=== PATIENT | male | born 1930 | race Caucasian/White ===

== ENCOUNTER 2017-09-02 23:04 | Emergency (ER) | payer MEDICARE ==
--- NOTE | 2017-09-02 23:23 | EDM.PDOC ---
ED HPI GENERAL MEDICAL PROBLEM - General Chief Complaint: Respiratory Problem Stated Complaint: ER Time Seen by Provider: 09/02/17 23:05 Source of Information: Reports: Patient, EMS - History of Present Illness INITIAL COMMENTS - FREE TEXT/NARRATIVE: Patient is brought in the emergency department tonight by EMS from a sudden onset of shortness of breath and inability to get in any air. Patient states that this started approximately around 9 PM tonight when he was just watching TV. The shortness of breath came out of nowhere. He denies any chest pain dizziness lightheadedness nausea or vomiting. Denies becoming diaphoretic at all. He has had episodes like this in the past but it has pasted on its own. Does have a history of smoking and is currently a smoker. Physical history of an aortic aneurysm measuring 5 mm that is being followed by cardiothoracic surgery. 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 - Related Data Allergies Allergy/AdvReac Type Severity Reaction Status Date / Time No Known Allergies Allergy Verified 09/02/17 23:22 Home Meds: Home Meds Acetaminophen [Tylenol Extra Strength] 1,000 mg PO BID PRN 06/30/17 [History] Aspirin [Halfprin] 81 mg PO DAILY 06/30/17 [History] Betamethasone Dipropionate [Diprosone 0.05% Crm] 1 dose TOP BID 06/30/17 [ History] Doxepin [SINEquan] 10 mg PO BEDTIME 06/30/17 [History] Triamcinolone Acetonide [Triamcinolone Acetonide 0.1% Crm] 1 dose TOP BID [History] amLODIPine [Norvasc] 2.5 mg PO DAILY 06/30/17 [History] rOPINIRole HCl [Requip] 0.25 mg PO TID 06/30/17 [History] Past Medical History HEENT History: Reports: Macular Degeneration Cardiovascular History: Reports: Heart Murmur, High Cholesterol, Hypertension, Other (See Below) Other Cardiovascular History: irregular heart rhythm Genitourinary History: Reports: Other (See Below) Other Genitourinary History: elevated PSA Musculoskeletal History: Reports: Back Pain, Chronic Oncologic (Cancer) History: Reports: Basal Cell Carcinoma, Renal (Partial right nephrectomy 2005. Left renal mass with radiofrequency ablation.) - Past Surgical History HEENT Surgical History: Reports: Cataract Surgery Cardiovascular Surgical History: Reports: AAA Repair GI Surgical History: Reports: Appendectomy Male Surgical History: Reports: Other (See Below) Other Male Surgeries/Procedures: ablation left renal cysts Musculoskeletal Surgical History: Reports: Hip Replacement Other Musculoskeletal Surgeries/Procedures:: rods in both hips Social & Family History - Family History Other Respiratory Family Hisory: Unknown lung disease father Psychiatric: Reports: Depression (father) Oncologic: Reports: Breast (sister), Liver (Mother), Pancreatic (mother), Other (See Below) (Abdominal mother. Sister unidentified other cancer) - Tobacco Use Smoking Status *Q: Current Some Day Smoker Years of Tobacco use: 60 Packs/Tins Daily: 0 (1-2 cigars per week) Used Tobacco, but Quit: No Second Hand Smoke Exposure: No - Caffeine Use Caffeine Use: Reports: Coffee (2-4 cups a day) - Alcohol Use Days Per Week of Alcohol Use: 0 (1 drink every other week) - Recreational Drug Use Recreational Drug Use: No - Living Situation & Occupation Living situation: Reports: , with Spouse Occupation: Retired (residential worker.) ED ROS GENERAL - Review of Systems Review Of Systems: See Below Constitutional: Reports: No Symptoms HEENT: Reports: No Symptoms Respiratory: Reports: No Symptoms Cardiovascular: Reports: No Symptoms Endocrine: Reports: No Symptoms GI/Abdominal: Reports: No Symptoms : Reports: No Symptoms Musculoskeletal: Reports: No Symptoms Skin: Reports: No Symptoms Neurological: Reports: No Symptoms Psychiatric: Reports: No Symptoms ED EXAM, GENERAL - Physical Exam Exam: See Below Exam Limited By: No Limitations General Appearance: Alert, WD/WN, No Apparent Distress Respiratory/Chest: Respiratory Distress, Crackles Cardiovascular: Irregularly Irregular (a. fib ) GI/Abdominal: Normal Bowel Sounds, Soft, Non-Tender, No Distention, No Abnormal Bruit Back Exam: Normal Inspection, Full Range of Motion Extremities: Normal Inspection, Normal Range of Motion, Non-Tender Neurological: Alert, Oriented Psychiatric: Normal Affect, Normal Mood EKG INTERPRETATION Rhythm: A-Fib Course - Vital Signs Last Recorded V/S: Last Vital Signs Temp 36.0 C 09/02/17 23:05 Pulse 86 09/02/17 23:05 Resp 20 09/02/17 23:05 BP 171/78 H 09/02/17 23:05 Pulse Ox 94 L 09/02/17 23:05 - Orders/Labs/Meds Orders: Active Orders 24 hr Category Date Time Status EKG 12 Lead [EKG Documentation Completion] [RC] URGENT Care 09/02/17 23:09 Active Chest 1V Frontal [CR] Stat Exams 09/02/17 23:09 Taken Chest w Cont [CT] Stat Exams 09/02/17 23:45 Taken Labs: Laboratory Tests 09/02/17 09/02/17 09/02/17 Range/Units 23:30 23:30 23:30 WBC 7.2 (4.0-10.0) x10^3/uL RBC 3.81 L (4.5-6.0) x10^6/uL Hgb 12.9 L (14.0-18.0) g/dL Hct 38.3 L (40.0-52.0) % MCV 100.5 H (78.0-93.0) fL MCH 33.9 H (26.0-32.0) pg MCHC 33.7 (32.0-36.0) g/dL RDW Coeff of Christiano 13.6 (10.0-15.0) % Plt Count 172 (130-400) x10^3/uL Neut % (Auto) 63.3 (50.0-80.0) % Lymph % (Auto) 21.8 L (25.0-50.0) % Avery % (Auto) 10.6 (2.0-11.0) % Eos % (Auto) 3.9 (0.0-4.0) % Baso % (Auto) 0.4 (0.2-1.2) % D-Dimer, Quantitative 0.83 H (<=0.58) mg/LFEU Sodium 139 (136-145) mmol/L Potassium 4.1 (3.5-5.1) mmol/L Chloride 101 (98-107) mmol/L Carbon Dioxide 28 (21-32) mmol/L BUN 27 H (7-18) mg/dL Creatinine 1.1 (0.70-1.30) mg/dL Est Cr Clr Drug Dosing 42.52 mL/min Estimated GFR (MDRD) > 60 Glucose 108 H (74-106) mg/dL Calcium 8.7 (8.5-10.1) mg/dL Corrected Calcium 8.94 (8.5-10.1) mg/dL Total Bilirubin 0.5 (0.2-1.0) mg/dL AST 21 (15-37) U/L ALT 20 (16-63) U/L Alkaline Phosphatase 88 (46-116) U/L Creatine Kinase (39-308) U/L Creatine Kinase Index (0.0-4.0) % CK-MB (CK-2) (0.0-3.6) ng/mL Troponin I (<=0.056) ng/mL NT-Pro-B Natriuret Pep 8134 H (<=450) pg/mL Total Protein 6.9 (6.4-8.2) g/dL Albumin 3.7 (3.4-5.0) g/dL Globulin 3.2 g/dL Albumin/Globulin Ratio 1.16 09/03/17 Range/Units 02:08 WBC (4.0-10.0) x10^3/uL RBC (4.5-6.0) x10^6/uL Hgb (14.0-18.0) g/dL Hct (40.0-52.0) % MCV (78.0-93.0) fL MCH (26.0-32.0) pg MCHC (32.0-36.0) g/dL RDW Coeff of Christiano (10.0-15.0) % Plt Count (130-400) x10^3/uL Neut % (Auto) (50.0-80.0) % Lymph % (Auto) (25.0-50.0) % Avery % (Auto) (2.0-11.0) % Eos % (Auto) (0.0-4.0) % Baso % (Auto) (0.2-1.2) % D-Dimer, Quantitative (<=0.58) mg/LFEU Sodium (136-145) mmol/L Potassium (3.5-5.1) mmol/L Chloride (98-107) mmol/L Carbon Dioxide (21-32) mmol/L BUN (7-18) mg/dL Creatinine (0.70-1.30) mg/dL Est Cr Clr Drug Dosing mL/min Estimated GFR (MDRD) Glucose (74-106) mg/dL Calcium (8.5-10.1) mg/dL Corrected Calcium (8.5-10.1) mg/dL Total Bilirubin (0.2-1.0) mg/dL AST (15-37) U/L ALT (16-63) U/L Alkaline Phosphatase (46-116) U/L Creatine Kinase 91 (39-308) U/L Creatine Kinase Index 3.2 (0.0-4.0) % CK-MB (CK-2) 2.9 (0.0-3.6) ng/mL Troponin I 0.049 (<=0.056) ng/mL NT-Pro-B Natriuret Pep (<=450) pg/mL Total Protein (6.4-8.2) g/dL Albumin (3.4-5.0) g/dL Globulin g/dL Albumin/Globulin Ratio Meds: Medications Discontinued Medications Generic Name Dose Route Start Last Admin Trade Name Freq PRN Reason Stop Dose Admin Furosemide 40 mg 09/03/17 01:55 09/03/17 02:03 Lasix IV 09/03/17 01:56 40 mg ONETIME ONE Administration Furosemide Confirm 09/03/17 02:03 Lasix Administered 09/03/17 02:04 Dose 40 mg .ROUTE .STK-MED ONE Iopamidol 100 ml 09/03/17 01:03 09/03/17 01:06 Isovue-300 (61%) IVPUSH 09/03/17 01:04 100 ml ONETIME ONE Administration Departure - Departure Time of Disposition: 02:20 Disposition: DC/Tfer to Acute Hospital 02 Reason for Transfer *Q: Other Condition: Fair Clinical Impression: Hemorrhagic cyst Congestive heart failure Qualifiers: Congestive heart failure type: unspecified Congestive heart failure chronicity : acute Qualified Code(s): I50.9 - Heart failure, unspecified Referrals: Edgardo Gill MD [Primary Care Provider] - Forms: ED Department Discharge, Interfacility Transfer EMTALA - My Orders Last 24 Hours: My Active Orders 09/02/17 23:09 EKG 12 Lead [EKG Documentation Completion] [RC] URGENT Chest 1V Frontal [CR] Stat 09/02/17 23:45 Chest w Cont [CT] Stat - Assessment/Plan Last 24 Hours: My Active Orders 09/02/17 23:09 EKG 12 Lead [EKG Documentation Completion] [RC] URGENT Chest 1V Frontal [CR] Stat 09/02/17 23:45 Chest w Cont [CT] Stat
[2017-09-03 00:11] LABS: CHLORIDE,CL 101 mmol/L (98-107); SODIUM,NA 139 mmol/L (136-145)
[2017-09-03] MEDS ORDERED: Iopamidol 612 MG/ML 100 ML Bottle IVPUSH ONE (01:03)
[2017-09-03] MEDS ORDERED: Furosemide 40 MG/4 ML VIAL IV ONE (01:55)
[2017-09-03] MEDS ORDERED: Furosemide 40 MG/4 ML VIAL ONE (02:03)
[2017-09-03] MEDS ORDERED: Furosemide 40 MG/4 ML VIAL IV SCH (08:00)
== END 2017-09-03 02:55 | disposition short-term general hospital (02) ==
LOC: VM.ED 23:04
DX: I11.0 Hypertensive heart disease with heart failure (principal); I50.9 Heart failure, unspecified; Q61.02 Congenital multiple renal cysts; E78.00 Pure hypercholesterolemia, unspecified; F17.210 Nicotine dependence, cigarettes, uncomplicated; Z88.6 Allergy status to analgesic agent; Z88.8 Allergy status to other drugs, medicaments and biological substances
CPT/HCPCS: 36415; 71045; 71260; 80053; 82550; 82553; 83880; 84484; 85025; 85379; 93005; 96374; 99285; J1940; Q9967

== ENCOUNTER 2019-07-25 07:28 | Emergency (ER) | payer MEDICARE ==
--- NOTE | 2019-07-25 08:57 | CR ---
[id number] RAD/RAD Knee Right 3V Exam: RAD Knee Right 3V Indication:FELL ON KNEE. Comparison: No prior imaging for comparison. Discussion: Mild soft tissue thickening over the patella, possibly contusion in the setting of fall. No radiographically evident fracture. No dislocation. Small joint effusion. 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 Diffuse bone demineralization. Impression: Possible anterior soft tissue contusion. No fracture or dislocation. Small knee joint effusion with tricompartmental osteoarthritis. If there is continued clinical suspicion of a fracture, noncontrast CT is recommended. Jacques Funez MD 07/25/19 0856 Thank you for allowing us to participate in the care of your patient.
[2019-07-25] MEDS ORDERED: Acetaminophen/HYDROcodone 325-5 MG Tab PO ONE (09:02)
--- NOTE | 2019-07-25 10:36 | CT ---
[id number] CT/CT Knee Right WO IV Exam: CT Knee Right WO IV Indication:KNEE PAIN,POST FALL. Comparison: Radiograph from today. Discussion: Contusion and edema in the prepatellar and superficial infrapatellar soft tissues. No hematoma. Small knee joint effusion. Sagittal series 6 images 66-68 demonstrates a subtle linear band of lucency that extends through the superior cortical bone of the patella. Findings could represent a nondisplaced fracture in a patient with bone demineralization, as fracture lines in the medullary cavity can be difficult to visualize. If findings are clinically equivocal, noncontrast MRI is recommended. No other radiographic evidence of a possible fracture. Tricompartmental osteoarthritis with joint space narrowing, as seen on radiograph from today. Evaluation of the femur demonstrates no acute fracture. Chronic healed intertrochanteric fracture status post fixation. Hardware is intact without evidence of loosening. Femoroacetabular osteoarthritis. Impression: Possible nondisplaced patella fracture, described above with recommendations. No other evidence of fracture in the knee. Jacques Funez MD 07/25/19 1034 Thank you for allowing us to participate in the care of your patient.
--- NOTE | 2019-07-25 20:26 | EDM.PDOC ---
ED HPI GENERAL MEDICAL PROBLEM - General Chief Complaint: Lower Extremity Injury/Pain Stated Complaint: Fall / Right Knee Pain Time Seen by Provider: 07/25/19 07:46 Source of Information: Reports: Patient History Limitations: Reports: No Limitations - History of Present Illness INITIAL COMMENTS - FREE TEXT/NARRATIVE: Pt. presents to ER with complaints of R knee pain. Pt. states that he slipped this AM while going in to have coffee, landing on his bent right knee. Since that time, he has been having issues bearing any weight. He was able to drive home, but called EMS to assist with getting him to ER. Pt. denied injury elsewhere. Denies striking head. No neck pain. No numbness/tingling in the extremity. Onset: Today Onset Date: 07/25/19 Onset Time: 07:50 Location: Reports: Lower Extremity, Right Quality: Reports: Sharp, Throbbing Severity: Moderate Improves with: Reports: Rest Worsens with: Reports: Movement Context: Reports: Trauma Right Knee Pain Pain Score (Numeric/FACES): 4 - Related Data Allergies Allergy/AdvReac Type Severity Reaction Status Date / Time No Known Allergies Allergy Verified 07/25/19 07:50 Home Meds: Home Meds Acetaminophen [Tylenol Extra Strength] 1,000 mg PO BID PRN 06/30/17 [History] Aspirin [Halfprin] 81 mg PO DAILY 06/30/17 [History] Betamethasone Dipropionate [Diprosone 0.05% Crm] 1 dose TOP BID 06/30/17 [ History] Doxepin [SINEquan] 10 mg PO BEDTIME 06/30/17 [History] amLODIPine [Norvasc] 2.5 mg PO DAILY 06/30/17 [History] rOPINIRole HCl [Requip] 0.25 mg PO TID 06/30/17 [History] DULoxetine [Cymbalta] 60 mg PO DAILY 07/25/19 [History] Furosemide [Lasix] 40 mg PO DAILY 07/25/19 [History] Gabapentin [Neurontin] 300 mg PO ASDIRECTED 07/25/19 [History] Lisinopril [Zestril] 2.5 mg PO DAILY 07/25/19 [History] atorvaSTATin [Lipitor] 20 mg PO BEDTIME 07/25/19 [History] carvediloL [Coreg] 6.25 mg PO BID 07/25/19 [History] Past Medical History HEENT History: Reports: Macular Degeneration, Other (See Below) Other HEENT History: Astigmatism. Myopia. Dry Eye. Allergic conjuntivitis of both eyes Cardiovascular History: Reports: Afib, CAD, Heart Failure, Heart Murmur, High Cholesterol, Hypertension, Other (See Below) Other Cardiovascular History: Irregular heart rhythm. Non-rheumatic aortic valve insufficiency. Thoracic aortic aneurysm without rupture Genitourinary History: Reports: Other (See Below) Other Genitourinary History: Elevated PSA. 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 Partial nephrectomy Musculoskeletal Surgical History: Reports: Hip Replacement Other Musculoskeletal Surgeries/Procedures:: rods in both hips Social & Family History - Family History Other Respiratory Family Hisory: Unknown lung disease father Psychiatric: Reports: Depression Oncologic: Reports: Breast, Liver, Pancreatic, Other (See Below) - Tobacco Use Smoking Status *Q: Current Some Day Smoker Years of Tobacco use: 60 Packs/Tins Daily: 0.1 - Caffeine Use Caffeine Use: Reports: Coffee (2-4 cups a day) - Recreational Drug Use Recreational Drug Use: No - Living Situation & Occupation Living situation: Reports: , with Spouse Occupation: Retired (drug abuse worker.) Review of Systems - Review of Systems Review Of Systems: Comprehensive ROS is negative, except as noted in HPI. ED EXAM, GENERAL - Physical Exam Exam: See Below Exam Limited By: No Limitations General Appearance: Alert, WD/WN, No Apparent Distress Extremities: Joint Swelling, Limited Range of Motion, Other (swelling/decreased ROM to R knee. No deformity noted. No crepitus.) Course - Vital Signs Last Recorded V/S: Last Vital Signs Temp 35.9 C 07/25/19 07:56 Pulse 45 L 07/25/19 07:56 Resp 16 07/25/19 07:56 BP 122/62 07/25/19 07:56 Pulse Ox 98 07/25/19 07:56 - Orders/Labs/Meds Meds: Medications Discontinued Medications Generic Name Dose Route Start Last Admin Trade Name Beka PRN Reason Stop Dose Admin Hydrocodone Bitart/Acetaminophen 1 tab 07/25/19 09:02 07/25/19 09:07 [place] 325-5 Mg PO 07/25/19 09:03 1 tab ONETIME ONE Administration - Radiology Interpretation Free Text/Narrative:: 3 view R knee obtained and was negative except for a small joint effusion. CT of the R lower extremity was obtained and showed possible non-displaced, incomplete fx. of R patella. Departure - Departure Time of Disposition: 11:00 Disposition: Home, Self-Care Clinical Impression: Patellar sleeve fracture of right knee - Discharge Information Instructions: Patellar Fracture, Adult Referrals: Edgardo Gill MD [Primary Care Provider] - Forms: ED Department Discharge Additional Instructions: Tylenol 650mg 1 tab every 4-6 hours as needed for pain Follow-up in clinic in 7-10 days if still having discomfort. Ice knee for 15 min every hour Recheck with Dr. Gill in 7-10 days Sepsis Event Note - Evaluation Sepsis Screening Result: No Definite Risk - Problem List Review Problem List Initiated/Reviewed/Updated: Yes - Assessment/Plan Plan: [facility] was consulted. The surgeon (Dr. Mcdonnell) questioned if there was indeed a fracture and stated that if there was, no surgical intervention was warranted. He advised placement of a knee immobilizer, pain control, and follow-up as needed if not gradually improving. Subsequently contacted pt. PCP, Dr. Gill, and advised him of the situation. He will follow-up in clinic within the next week. Pt. was offered a short course of hydrocodone for pain control but he refused, stating he was on it in the past and is concerned about addiction/ability to drive, etc. Pt. will subsequently use tylenol for pain control. Advised to ice the knee and elevate it as much as possible. Advised against use of NSAIDs due to patient's advanced age/PMH.
== END 2019-07-25 11:20 | disposition home or self-care (01) ==
LOC: VM.ED 07:28
DX: S82.001A Unspecified fracture of right patella, initial encounter for closed fracture (principal); F17.210 Nicotine dependence, cigarettes, uncomplicated; I11.0 Hypertensive heart disease with heart failure; I50.9 Heart failure, unspecified; I48.91 Unspecified atrial fibrillation; I25.10 Atherosclerotic heart disease of native coronary artery without angina pectoris; Z79.899 Other long term (current) drug therapy; Z79.82 Long term (current) use of aspirin; W01.0XXA Fall on same level from slipping, tripping and stumbling without subsequent striking against object, initial encounter
CPT/HCPCS: 73562; 73700; 99283; 99284; A9270